=== PATIENT | female | born 1970 | race Caucasian/White ===

== ENCOUNTER 2017-10-30 13:08 | Day surgery (SDC) | payer OTHER ==
[~2017-10-30] VITALS: Ht 172.7 cm; Wt 99.9 kg
[2017-10-30] MEDS ORDERED: LACTATED RINGERS 1,000 ML IV SCH ×3 (13:47→17:44)
[2017-10-30] MEDS ORDERED: [UNRECOGNIZED DRUG - MIXTURE] (14:17)
[2017-10-30] MEDS ORDERED: CANA1TAB3 PO (14:17)
[2017-10-30] MEDS ORDERED: INSULIN GLARGINE SQ (14:17)
[2017-10-30] MEDS ORDERED: LISI40TA PO (14:17)
[2017-10-30] MEDS ORDERED: GLIM4TAB2 PO (14:17)
[2017-10-30] MEDS ORDERED: ATOR20TA9 PO (14:17)
[2017-10-30] MEDS ORDERED: LEVO50TA PO (14:17)
[2017-10-30] MEDS ORDERED: TRIA1TAB3 PO (14:20)
[2017-10-30 14:26] VITALS: BP 124/82
[2017-10-30 14:26] LABS: HCG UR SG 1.045 (1.003-1.030)
[2017-10-30] MEDS ORDERED: ACETAMINOPHEN 500 MG TABLET PO ONE (14:30)
[2017-10-30] MEDS ORDERED: OXYcodone IR 5MG TABLET PO ONE (14:30)
[2017-10-30] MEDS ORDERED: GABAPENTIN 300 MG CAPSULE PO ONE (14:30)
[2017-10-30] MEDS ORDERED: FAMOTIDINE 20 MG TABLET PO ONE (14:30)
[2017-10-30] MEDS ORDERED: ONDANSETRON ODT 8 MG PO ONE (14:30)
[2017-10-30] MEDS ORDERED: SCOPOLAMINE PATCH, 1.5MG PATCH.TD72 TD ONE (14:30)
[2017-10-30] MEDS ORDERED: BUPIVACAINE/PF-EPI 0.25% 1:200K ONE (14:38)
[2017-10-30] MEDS ORDERED: SILVER NITRATE STICK TP ONE (14:38)
[2017-10-30 15:05] LABS: BASOPHILS # (AUTO) 0.09 x10^3/uL (0-0.1); BASOPHILS % (AUTO) 1 % (0-1); EOSINOPHILS # (AUTO) 0.34 x10^3/uL (0-0.4); EOSINOPHILS % (AUTO) 4 % (1-7); LYMPHOCYTES # (AUTO) 4.17 x10^3/uL (1-3.4); LYMPHOCYTES % (AUTO) 49 % (22-44); MD NO; MEAN CORPUSCULAR HEMOGLOBIN 28.2 pg (27.0-34.8); MEAN CORPUSCULAR HGB CONC 33.5 g/dL (32.4-35.8); MEAN CORPUSCULAR VOLUME 84.2 fL (80-100); MEAN PLATELET VOLUME 6.7 fL (7.4-10.4); MONOCYTES # (AUTO) 0.47 x10^3/uL (0.2-0.8); MONOCYTES % (AUTO) 6 % (2-9); NEUTROPHILS # (AUTO) 3.52 x10^3/uL (1.8-6.8); NEUTROPHILS % (AUTO) 41 % (42-75); PLATELET COUNT 388 x10^3/uL (130-400); RED BLOOD COUNT 4.93 x10^6/uL (3.82-5.3); RED CELL DISTRIBUTION WIDTH 13.9 % (9.6-15.2)
[2017-10-30] MEDS ORDERED: MIDAZOLAM 1 MG/ML, 2ML ONE (16:16)
[2017-10-30] MEDS ORDERED: FENTANYL PF 100 MCG/2ML ONE ×2 (16:16→18:46)
[2017-10-30] MEDS ORDERED: CEFAZOLIN 1,000 MG ONE (17:01)
[2017-10-30] MEDS ORDERED: KETOROLAC 30 MG/1 ML ONE (17:01)
[2017-10-30] MEDS ORDERED: PROPOFOL 10 MG/ML, 20ML ONE (17:01)
[2017-10-30] MEDS ORDERED: DEXAMETHASONE 4 MG/ML, 1ML ONE (17:01)
[2017-10-30] MEDS ORDERED: MEPERIDINE/PF 25MG/0.5ML IVPush PRN (17:30)
[2017-10-30] MEDS ORDERED: EPHEDRINE 50 MG/ML, 1ML IVPush PRN (17:30)
[2017-10-30] MEDS ORDERED: LABETALOL 5MG/ML, 20ML IV PRN (17:30)
[2017-10-30] MEDS ORDERED: MIDAZOLAM 1 MG/ML, 2ML IV PRN (17:30)
[2017-10-30] MEDS ORDERED: ONDANSETRON ODT 8 MG PO PRN (17:30)
[2017-10-30] MEDS ORDERED: PROMETHAZINE 25 MG/ML, 1ML IV PRN (17:30)
[2017-10-30] MEDS ORDERED: ALBUTEROL SULFATE 2.5 MG/3 ML NPPB PRN (17:30)
[2017-10-30] MEDS ORDERED: OXYcodone 5 MG/5 ML ORAL.SOL UDC PO PRN (17:30)
[2017-10-30] MEDS ORDERED: HYDROcodone/APAP 7.5-325MG/15ML UDC PO PRN (17:30)
[2017-10-30] MEDS ORDERED: HYDROmorphone 2 MG/ML, 1ML IV PRN (17:30)
[2017-10-30] MEDS ORDERED: hydrALAzine 20 MG/ML, 1ML IV PRN (17:30)
[2017-10-30] MEDS ORDERED: PROMETHAZINE 25 MG/ML, 1ML ONE (17:54)
[2017-10-30] MEDS ORDERED: HYDROcodone/APAP 5/325 TABLET PO PRN (18:00)
[2017-10-30] MEDS ORDERED: PROMETHAZINE 25 MG SUPP PR ONE (18:00)
[2017-10-30] MEDS ORDERED: ONDANSETRON 2MG/ML, 2ML IVPush PRN (18:00)
[2017-10-30] MEDS ORDERED: IBUPROFEN 600 MG TABLET PO PRN (18:00)
[2017-10-30] MEDS: FENTANYL PF 100 MCG/2ML IV PRN ×2 (18:45→19:00)
== END 2017-10-30 22:00 | disposition home or self-care (01) ==
LOC: OUT 13:08 → 4NOR 19:18 → OUT 22:00
PROVIDERS: ATTEND Obstetrics & Gynecology Female Pelvic Medicine and Reconstructive Surgery
DX: N93.9 Abnormal uterine and vaginal bleeding, unspecified (principal); I82.409 Acute embolism and thrombosis of unspecified deep veins of unspecified lower extremity; E11.9 Type 2 diabetes mellitus without complications; E03.9 Hypothyroidism, unspecified; I10 Essential (primary) hypertension; Z86.711 Personal history of pulmonary embolism; Z98.890 Other specified postprocedural states
CPT/HCPCS: 36415; 58563; 81025; 82962; 85025; 88305; G0378; J0690; J1100; J1885; J2250; J2550; J2704; J3010; J7120; Q0162